=== PATIENT | male | born 1970 | race African-American/Black ===

== ENCOUNTER 2016-12-24 10:12 | Inpatient (IN) | payer BC ==
[~2016-12-24] VITALS: Ht 170.2 cm; Wt 74.8 kg
[2016-12-24 11:10] VITALS: BP 160/100
[2016-12-24] MEDS ORDERED: METHOTREXATE2.5 M1 PO (11:29)
[2016-12-24 13:05] LABS: BASO % 0.4 % (0.0-1.0); EOS # 0.2 10*3/uL (0.0-0.4); EOS % 3.7 % (1.0-4.0); HEMATOCRIT 41.1 % (42.0-52.0); LYMPH # 0.6 10*3/uL (1.3-4.4); LYMPH % 12.9 % (27.0-41.0); MEAN CELL VOLUME 82.7 fl (80.0-94.0); MEAN CORPUSCULAR HGB 26.2 pg (27.0-31.0); MEAN CORPUSCULAR HGB CONC 31.6 g/dl (33.0-37.0); MEAN PLATELET VOLUME 9.3 fl (9.6-12.3); MONO # 0.3 10*3/uL (0.1-1.0); MONO % 6.6 % (3.0-9.0); NEUT # 3.5 10*3/uL (2.3-7.9); NEUT % 76.2 % (47.0-73.0); PLATELET COUNT AUTOMATED 199 10*3/uL (130-400); RED BLOOD COUNT 4.97 10*6/uL (4.50-5.90); RED CELL DISTRI WIDTH 13.8 % (0-14.5); WHITE BLOOD COUNT 4.6 10*3/uL (4.8-10.8)
[2016-12-24 13:13] LABS: PROTHROMBIN TIME 10.1 SECONDS (9.0-12.4)
[2016-12-24 13:19] LABS: ALBUMIN 3.9 gm/dl (3.1-4.5); ALKALINE PHOSPHATASE 78 U/L (45-117); BILIRUBIN, TOTAL 0.9 mg/dl (0.2-1.0); BUN 8 mg/dl (7-24); CARBON DIOXIDE 28 mmol/L (21-32); CHLORIDE 106 mmol/L (98-107); EST GLOM FILT AFRICAN AMERICAN > 60 ml/min; GLUCOSE 87 mg/dL (65-99); POTASSIUM 4.2 mmol/L (3.5-5.1); SGOT/AST 32 IU/L (3-35); SGPT/ALT 37 U/L (12-78); SODIUM 140 mmol/L (136-145)
[2016-12-24 16:00] VITALS: BP 138/86
[2016-12-24 16:48] LABS: BILIRUBIN NEGATIVE (NEGATIVE); BLOOD TRACE-INTACT (NEGATIVE); CLARITY SL CLOUDY (CLEAR); COLOR YELLOW (YELLOW); GLUCOSE NEGATIVE (NEGATIVE); KETONE NEGATIVE (NEGATIVE); LEUKO ESTERASE TRACE (NEGATIVE); NITRITE NEGATIVE (NEGATIVE); PH 5.5 (5.0-9.0); PROTEIN NEGATIVE (NEGATIVE); UROBILINOGEN 0.2 E.U./dl (0.2-1.0)
[2016-12-24 16:56] LABS: URINE AMPHETAMINES < 1000 (1000ng/ml); URINE BARBITURATES < 200 (200ng/ml); URINE COCAINE < 300 (300ng/ml)
[2016-12-24 16:57] LABS: URINE REFLEX COMMENT YES (NO)
[2016-12-24 16:58] LABS: BACTERIA TRACE; MUCOUS TRACE
[2016-12-24 20:00] VITALS: BP 138/96
[2016-12-25] VITALS: BP 130/90
[2016-12-25 04:30] VITALS: BP 142/100
[2016-12-25 08:00] VITALS: BP 142/96
[2016-12-25] MEDS ORDERED: HYDROCHLOROTH12.5 M2 PO (12:44)
== END 2016-12-25 13:15 | disposition home or self-care (01) | DRG 897 ==
LOC: 4E 10:12
PROVIDERS: Internal Medicine
DX: F10.239 Alcohol dependence with withdrawal, unspecified (principal); I10 Essential (primary) hypertension; D72.810 Lymphocytopenia; D64.9 Anemia, unspecified; L30.9 Dermatitis, unspecified; R10.84 Generalized abdominal pain; Z79.899 Other long term (current) drug therapy